=== PATIENT | female | born 1985 | race Caucasian/White ===

== ENCOUNTER 2019-09-02 09:46 | Emergency (ER) | payer OTHER ==
[~2019-09-02] VITALS: Ht 167.6 cm; Wt 59.0 kg
--- NOTE | 2019-09-02 10:02 | NUR ---
Patient ambulated with stable gait. Speech is clear, speaks in complete sentences. A/Ox4. No acute neuro deficits. Patient came for c/o multiple complaints; patient came for hemorrhoids that are painful and is making her uncomfortable when she ambulates, sits, or moves her bowels. Rectal pain unrelieved by Preparation H. On top of that patient also reports having yeast infection since wednesday. Respiratory even and unlabored, no cough no sob. Patient in bed at lowest position, sr up x2, call light within reach. Fall precautions implemented per protocol. Patient changed into a gown for evaluation by YEYO.
--- NOTE | 2019-09-02 10:06 | NUR ---
ERMD at bedside for MSE
--- NOTE | 2019-09-02 10:18 | NUR ---
YEYO MONTOYA to perform Pelvic exam. Female zone manager, Ritu SOLOMON, accompanied female patient for Pelvic Exam.
[2019-09-02 10:47] VITALS: BP 129/87
--- NOTE | 2019-09-02 10:47 | NUR ---
Patient discharged to home in stable conditon. Written and verbal after care instructions given. Patient verbalizes understanding of instructions. Patient ambulated with stable gait.
== END 2019-09-02 10:48 | disposition home or self-care (01) ==
LOC: ER 09:46
DX: K64.4 Residual hemorrhoidal skin tags (principal); F32.9 Major depressive disorder, single episode, unspecified
CPT/HCPCS: 87210; A4663